=== PATIENT | female | born 1970 | race Caucasian/White ===

== ENCOUNTER 2024-04-14 13:06 | Outpatient (CLI) | payer BC ==
[2024-04-14 14:14] LABS: #Basophils 0.08 10x3/uL (0.0-0.2); %Basophils 1.5 % (0.0-1.0); %Eosinophils 4.5 % (0.0-10.0); %Lymphocytes 46.5 % (21.0-51.0); %Monocytes 8.5 % (0.0-10.0); %Neutrophils 38.8 % (42.0-75.0); Hematocrit 39.8 % (36.0-47.0); Hemoglobin 13.5 g/dL (12.0-16.0); Mean Corpuscular HGB CONC 33.9 g/dL (32.0-36.0); Mean Corpuscular Hemoglobin 32.2 pg (27.0-31.0); Mean Platelet Volume 8.7 fL (7.4-10.4); Platelet Count 273 10x3/uL (130-400); RBC Distribution Width 12.3 % (11.5-14.5); Red Blood Cell (RBC) Count 4.19 mill/uL (4.20-5.40)
[2024-04-14 14:35] LABS: PTT 27.3 sec (22.9-36.1)
[2024-04-14 15:20] LABS: Anion Gap 15 mmol/L (10-20); BUN (Urea Nitrogen) 11 mg/dL (9.8-20.1); Calc. Creatinine Clearance 0 mL/min (70-130); Carbon Dioxide 26 mmol/L (22-29); Chloride 106 mmol/L (98-107); Estimated GFR 105; Glucose 81 mg/dL (70-105); Potassium 3.7 mmol/L (3.5-5.1); Sodium 143 mmol/L (136-145)
== END 2024-04-14 13:07 | disposition home or self-care (01) ==
LOC: LABBT 13:06
PROVIDERS: ATTEND Urology
DX: Z01.818 Encounter for other preprocedural examination (principal); N20.0 Calculus of kidney; K59.01 Slow transit constipation; R35.0 Frequency of micturition
CPT/HCPCS: 80048; 85025; 85610; 85730; 93005; 93010

== ENCOUNTER 2024-05-03 06:12 | Day surgery (SDC) | payer BC ==
[2024-04-14 13:27] VITALS: BMI 17.9
[2024-05-03] MEDS ORDERED: cefTRIAXone (ROCEPHIN) 2 GM VIAL ONE (08:29)
[2024-05-03] MEDS ORDERED: Sodium Chloride 0.9% 100 ML ONE (08:29)
[2024-05-03] MEDS ORDERED: PROPOFOL 20 ML ONE ×2 (09:38→10:43)
[2024-05-03] MEDS ORDERED: Lidocaine 2% PF 5 ML VIAL ONE (09:38)
[2024-05-03] MEDS ORDERED: Rocuronium Bromide 10 MG/ML (10ML VIAL) ONE (09:38)
[2024-05-03] MEDS ORDERED: Iopamidol 30 ML ONE (10:01)
[2024-05-03] MEDS ORDERED: fentaNYL PF 100 MCG/2 ML SYRINGE ONE ×2 (10:06→12:09)
[2024-05-03] MEDS ORDERED: Midazolam HCl 2 mg/2 ml Vial ONE (10:06)
[2024-05-03] MEDS ORDERED: Dexamethasone 4 mg/ml Vial ONE (10:30)
[2024-05-03] MEDS ORDERED: Ondansetron PF 4 MG/2 ML Vial ONE (10:30)
[2024-05-03] MEDS ORDERED: SUGAMMADEX SODIUM 200 MG/2 ML VIAL ONE (10:32)
[2024-05-03] MEDS ORDERED: ePHEDrine Sulfate 50 MG/10 ML VIAL ONE (10:36)
[2024-05-03] MEDS ORDERED: Glycopyrrolate 0.2 MG/ML 5 ML SYRINGE ONE ×2 (10:40→11:37)
[2024-05-03] MEDS ORDERED: NEOSTIGMINE 3 MG/3 ML SYRINGE ONE (11:37)
[2024-05-03] MEDS ORDERED: Hyoscyamine SL 0.125 MG TAB ONE ×3 (12:01→15:24)
[2024-05-03] MEDS ORDERED: Phenazopyridine HCl 100 MG TAB ONE (12:02)
== END 2024-05-03 17:00 | disposition home or self-care (01) ==
LOC: SDC 06:12
PROVIDERS: ATTEND Urology
PROC: 0T768DZ Dilation of Right Ureter with Intraluminal Device, Via Natural or Artificial Opening Endoscopic (ICD-10-PCS; principal; 2024-05-03)
PROC: 0TC08ZZ Extirpation of Matter from Right Kidney, Via Natural or Artificial Opening Endoscopic (ICD-10-PCS; principal; 2024-05-03)
DX: N20.0 Calculus of kidney (principal); K31.84 Gastroparesis; K59.01 Slow transit constipation; K21.9 Gastro-esophageal reflux disease without esophagitis; F41.9 Anxiety disorder, unspecified; F32.A Depression, unspecified; Z87.891 Personal history of nicotine dependence; Z90.710 Acquired absence of both cervix and uterus; Z90.49 Acquired absence of other specified parts of digestive tract; Z91.011 Allergy to milk products; Z91.018 Allergy to other foods; Z91.012 Allergy to eggs; Z79.899 Other long term (current) drug therapy
CPT/HCPCS: 74018; 74420; 82365; 88300; C1894; J0696; J1100; J2250; J2405; J2704; Q9967